=== PATIENT | female | born 1985 | race Caucasian/White ===

== ENCOUNTER 2020-01-16 10:59 | Inpatient (IN) | payer SELFPAY ==
[2020-01-16 11:10] VITALS: BMI 33.2
--- NOTE | 2020-01-16 11:57 | PDOC ---
History of Present Illness - General Chief Complaint: Back Pain Stated Complaint: BACK PAIN/ POSIBLE PREG Time Seen by Provider: 01/16/20 11:25 - History of Present Illness Initial Comments: 01/16/20 11:51 34 at unknown gestational age, LMP 12-22-19, with no sig pmh who p/w BL lower back and flank pain, vaginal bleeding, intermittent dysuria. Patient reports + home test x 3 days ago. Also endorses 3 days of sharp, and pressure-type, bilateral, lower back, and flank pain, with no radiation. Pain worse with standing and prolonged standing. Also endorses bright red blood spotting in underwear 01-13-19, now resolved. Denies PO medication use. Denies repetitive heavy lifting, back straining, back trauma. Patient denies LI, vision change, palpitations, cough, wheezing, orthopena, PND , leg swelling/pain, N/V, F,C, CP, SOB, hematuria, BPR, abdominal pain, diarrhea , vaginal burning/itching/discharge, constipation, lightheadedness, weakness, sensory changes. PMHx: as noted above Surgical: Denies surgical ROS: as noted SHx: Denies Etoh, IVDA, tobacco use. Sexually active with one male partner at bedside. Denies h/o STI's. No routine care. Allergies: NKDA Past History - Past Medical History Allergies/Adverse Reactions: Allergies Allergy/AdvReac Type Severity Reaction Status Date / Time No Known Allergies Allergy Verified 01/16/20 11:08 COPD: No - Reproductive History Is Patient Now?: Yes (#): 1 Para: 0 Therapeutic (s) & number: No - Psycho Social/Smoking Cessation Hx Smoking History: Never smoked Information on smoking cessation initiated: No Review of Systems - Review of Systems Comments:: 01/16/20 11:58 GENERAL/CONSTITUTIONAL: No fever or chills. No weakness. HEAD, EYES, EARS, NOSE AND THROAT: No change in vision. No ear pain or discharge. No sore throat. CARDIOVASCULAR: No chest pain or shortness of breath RESPIRATORY: No cough, wheezing, or hemoptysis. GASTROINTESTINAL: No nausea, vomiting, diarrhea or constipation. GENITOURINARY: + vaginal bleeding, and dysuria. No frequency, or change in urination. MUSCULOSKELETAL:+ Lower back pain. No joint or muscle swelling or pain. No neck pain. SKIN: No rash NEUROLOGIC: No headache, vertigo, loss of consciousness, or change in strength/ sensation. ENDOCRINE: No increased thirst. No abnormal weight change HEMATOLOGIC/LYMPHATIC: No anemia, easy bleeding, or history of blood clots. ALLERGIC/IMMUNOLOGIC: No hives or skin allergy. *Physical Exam - Vital Signs Last Vital Signs Temp Pulse Resp BP Pulse Ox 100.4 F H 110 H 18 117/79 99 01/16/20 11:04 01/16/20 11:04 01/16/20 11:04 01/16/20 11:04 01/16/20 11:04 - Physical Exam 01/16/20 11:59 GENERAL: Awake, alert, and fully oriented, in no acute distress HEAD: No signs of trauma, normocephalic, atraumatic EYES: PERRLA, EOMI, sclera anicteric, conjunctiva clear ENT: Hearing grossly normal, nares patent, oropharynx clear without exudates. Moist mucosa NECK: Normal ROM, supple, no lymphadenopathy, JVD, or masses LUNGS: No distress, speaks full sentences, clear to auscultation bilaterally HEART: Regular rate and rhythm, normal S1 and S2, no murmurs, rubs or gallops, peripheral pulses normal and equal bilaterally. ABDOMEN: Soft, nontender, normoactive bowel sounds. No guarding, no rebound. No masses EXTREMITIES : Normal inspection, Normal range of motion, no edema. No clubbing or cyanosis NEUROLOGICAL: Cranial nerves II through XII grossly intact. Normal speech, normal gait, no focal sensorimotor deficits. 2+ Palpable and symmetric pulses throughout. GENITOURINARY: Nml appearing external genitalia, with absent lesions. Vaginal vault without blood, or discharge. Cervical os closed. Neg CMT on BM. Neg adenexal ttp, or mass palpated. Chaperoned by Dr. Hien Ferrera. BACK: + R>L CVA ttp. + BL paraspinal lumbar sacral and flank pain. Negative midline ttp, step-off or bony deformity. Neg skin change. Neg straight leg raise test. SKIN: Warm, Dry, normal turgor, no rashes or lesions noted ED Treatment Course - LABORATORY CBC & Chemistry Diagram: 01/17/20 06:25 01/17/20 06:25 - RADIOLOGY Radiology Studies Ordered: 01/16/20 14:17 Krystian Sofia Name: RIOS SMITH DEPARTMENT OF RADIOLOGY Phys: Hien Ferrera DO : 1985 Age: 34 Sex: F [facility] Acct: [id number] Loc: [address] Exam Date: 01/16/20 Status: [place] [address] Unit Number: [id number] EXAM#: TYPE/EXAM: RESULT: US/TRANSVAGINAL US PREG History Possible early TECHNIQUE: Transvaginal FINDINGS: The uterus measures 7.9 x 4.1 x 6.4 cm. The endometrium measures 1.3 cm in AP dimension. No sonographic evidence of intrauterine gestational sac The right ovary measures 4.1 x 2.8 x 3.6 cm.. Including a 3.1 cm simple right ovarian cyst The left ovary measures 3.8 x 2.6 x 2.6 cm... Including a 2.5 cm simple left ovarian cyst Doppler evaluation unremarkable There are no adnexal masses. There is no free fluid in the pelvis. IMPRESSION No sonographic evidence of intrauterine gestational sac. Recommend clinical correlation. Recommend correlation with serial beta hCGs and recommend follow-up pelvic sonography for further evaluation Bilateral simple ovarian cysts identified Krystian Sofia Name: RIOS SMITH DEPARTMENT OF RADIOLOGY Phys: Israel Barrett RESIDENT : 1985 Age: 34 Sex: F [facility] Acct: [id number] Loc: [address] Exam Date: 01/16/20 Status: [place] [address] Unit Number: [id number] EXAM#: TYPE/EXAM: RESULT: US/KIDNEY / RENAL US Renal sonogram HISTORY : Bilateral flank pain FINDINGS: Right kidney measures 11.3 cm Left kidney measures 11.4 cm No hydronephrosis, renal masses or renal calculi IMPRESSION: Negative study Reported By: Darian Deluna MD 01/16/20 1411 Israel Barrett Technologist: Amisha Hernandez Transcribed Date/Time: 01/16/20 1411 Feller Buncher Operator: Darian Deluna Printed Date/Time: By: Medical Decision Making - Medical Decision Making 01/16/20 11:55 34 at 4-5 wga, LMP 12-22-19, with no sig pmh who p/w sharp, pressure-type , bilateral, lower back, and flank pain, and flank pain with no radiation x 3 days, intermittent dysuria, and vaginal spotting x 1 day 01-13-20 (now resolved) . Pain worse with standing and prolonged standing. HR 110, Temp oral 100.4. Vitals otherwise wnl, AF, A&Ox4. Physical exam notable for + BL paraspinal lumbar sacral and flank pain. R>L CVA ttp. Will assess for viable IUP, vs. ectopic, threatened . Will consider cystitis, pyeloneprhitis. Will provide analgesic, and anti-emetic control, and reassess. ED Course: EKG: NSR with absent ALINE, STD. Nml interval duration and axis. Nml R wave progression. Absent Q waves. NS 1 L, Tylenol 1 GM 01/16/20 12:37 Laboratory Tests 01/16/20 01/16/20 11:40 11:40 WBC 7.6 Hgb 12.0 Hct 35.6 Plt Count 237 Urine Color Yellow Urine Appearance Cloudy Urine Blood 3+ H Urine Nitrite Positive H Ur Leukocyte Esterase 2+ H Urine WBC (Auto) 151 Urine RBC (Auto) 5 Urine Bacteria (Auto) 2781.4 01/16/20 12:37 Rocephin 1 gm Pyelonephritis- BL flank pain, 2/4 SIRS criteria ( temp 100.4, HR 110 ), early /high risk. Plan to admit pyelo 01/16/20 12:55 Laboratory Tests 01/16/20 11:40 Sodium 135 L Potassium 3.8 BUN 10.8 Creatinine 0.5 L Beta HCG, Quant 40.9 01/16/20 14:19 No sonographic evidence of intrauterine gestational sac. Recommend clinical correlation. Recommend correlation with serial beta hCGs and recommend follow- up pelvic sonography for further evaluation Bilateral simple ovarian cysts identified 01/16/20 14:19 RENAL IMPRESSION: Negative study Patient notified of decision to admit for pyelo. 01/16/20 14:53 Pt. endorsed to medicine. Admitted to Dr. Rosa. Discharge - Discharge Information Problems reviewed: Yes Clinical Impression/Diagnosis: Pyelonephritis affecting Qualifiers: Trimester: first trimester Qualified Code(s): O23.01 - Infections of kidney in , first trimester Condition: Stable - Admission Yes - Follow up/Referral - Patient Discharge Instructions - Post Discharge Activity
[2020-01-16] MEDS ORDERED: SODIUM CHLORIDE 2,313 ML IV ONE (12:04)
[2020-01-16 12:22] LABS: BASO % 0.5 % (0-2.0); EOS % 0.2 % (0-4.5); HEMATOCRIT 35.6 % (32.4-45.2); LYMPH % 12.1 % (8-40); MCH 29.1 pg (25.7-33.7); MCHC 33.6 g/dl (32.0-36.0); MEAN CELL VOLUME 86.4 fl (80-96); MEAN PLT VOLUME 8.9 fl (7.5-11.1); MONO % 11.7 % (3.8-10.2); NEUT % 75.5 % (42.8-82.8); PLATELET COUNT 237 K/MM3 (134-434); RBC 4.12 M/mm3 (3.60-5.2); RDW 14.6 % (11.6-15.6); WHITE BLOOD COUNT 7.6 K/mm3 (4.0-10.0)
[2020-01-16] MEDS ORDERED: ACETAMINOPHEN 1000 MG/100 ML VIAL (NON FORMULARY) IVPB ONE (12:27)
--- NOTE | 2020-01-16 12:29 | PDOC ---
Documentation entered by Obie Fine SCRIBE, acting as scribe for Hien Ferrera DO. Hien Ferrera DO: This documentation has been prepared by the Babatunde dawn Daniel, SCRIBE, under my direction and personally reviewed by me in its entirety. I confirm that the documentation accurately reflects all work, treatment, procedures, and medical decision making performed by me. Attending Attestation - Resident Resident Name: ArnodlIsrael - ED Attending Attestation I have performed the following: I have examined & evaluated the patient, The case was reviewed & discussed with the resident, I agree w/resident's findings & plan, Exceptions are as noted - HPI HPI: 01/16/20 12:05 The patient is a 34 year old with no past medical history here today for evaluation of bilateral lower back and flank pain. The patient reports that she had a positive home test and that her LMP was 12/22/2019. She states that 3 days ago she developed bilateral lower back and flank pain that is worse with prolonged standing and sitting. She also notes dysuria and one episode of vaginal spotting 3 days ago. Patient denies headache, lightheadedness. Denies fever, chills. Denies chest pain, shortness of breath. Denies nausea, vomiting, diarrhea. Allergies: NKA - Physicial Exam PE: 01/16/20 12:17 Constitutional: +warm to touch. Awake, alert, oriented. No acute distress. Head: Normocephalic. Atraumatic Eyes: PERRL. EOMI. Conjunctivae are not pale. ENT: Mucous membranes are moist and intact. Posterior pharynx without exudates or erythema. Uvula midline. Neck: Supple. Full ROM. No lymphadenopathy. Cardiovascular: +tachycardia. Regular rhythm. S1, S2 regular. Distal pulses are 2+ and symmetric. Pulmonary/Chest: No evidence of respiratory distress. Clear to auscultation bilaterally No wheezing, rales or rhonchi. Abdominal: Soft and non-distended. There is no tenderness. No rebound, guarding or rigidity. No organomegaly. No palpable masses. Good bowel sounds. Back: +right greater than left CVA tenderness. Musculoskeletal: No edema. No cyanosis. No clubbing. Full range of motion in all extremities. No calf tenderness. Radial/pedal pulses are intact and 2+ bilaterally Skin: Skin is warm and dry. No petechiae. No purpura. Neurological: Alert and oriented to person, place, and time. Cranial nerves II -XII are grossly intact. Normal speech. Strength is grossly symmetric. No sensory deficits. Psychiatric: Good eye contact. Normal interaction, affect and behavior. - Medical Decision Making 01/16/20 12:27 I, Dr. Hien Ferrera, DO, attest that this document has been prepared under my direction and personally reviewed by me in its entirety. I further attest, that it accurately reflects all work, treatment, procedures and medical decision -making performed by me. a/p: 34yo female at about 4-5 weeks gestation with fever today and back pain -states urinary freq, no dysuria -states vaginal spotting 3 days ago -no bleeding today -pt denies n/v/d -no abd pain -pt wit R>L cva ttp -will send labs, tvus, beta, renal ultrasound, suspect uti vs pyelo -tylenol, ivf hydration -no cough, congestion, cp/sob -will monitor and reassess 01/16/20 12:59 no elevated wbc ua + uti pending ultrasound 01/16/20 12:59 beta hcg 40.9 01/16/20 13:32 pt to ultrasound 01/16/20 13:32 pt is o+ 01/16/20 14:16 no hydro, no iup but beta 40 will need repeat beta pt with clinical pyelo and preg iv abx ordered will [facility] for admission for iv abx 01/16/20 14:49 resident discussed the case with [facility] who accepts pt to service Heart Score/ECG Review - ECG Intrepretation Comment:: 01/16/20 14:41 sinus at 89, nl axis, nl interval, no acute st/t wave findings
[2020-01-16 12:30] LABS: EPI CELLS 4.2 /HPF (0-5/HPF); HYALINE CASTS 15 /lpf (0-8); PH,URINE 6.5 (5.0-8.0); URINE APPEARANCE CLOUDY; URINE BACTERIA 2781.4 /hpf (NEGATIVE); URINE BILIRUBIN NEGATIVE (NEGATIVE); URINE COLOR YELLOW; URINE GLUCOSE (UA) NEGATIVE (NEGATIVE); URINE KETONE NEGATIVE (NEGATIVE); URINE LEUK ESTERASE 2+ (NEGATIVE); URINE NITRITE POSITIVE (NEGATIVE); URINE PROTEIN 1+ (NEGATIVE); URINE RBC 5 /hpf (0-4); URINE WBC 151 /hpf (0-5)
[2020-01-16] MEDS ORDERED: CEFTRIAXONE 1 GM in DEXTROSE 5%-WATER - 100 ML IVPB ONE (12:36)
[2020-01-16] MEDS ORDERED: ACETAMINOPHEN INJECTION 100 ML IVPB ONE (12:37)
[2020-01-16 12:55] LABS: ALBUMIN 3.3 g/dl (3.4-5.0); BILIRUBIN,TOTAL 0.6 mg/dL (0.2-1); BLOOD UREA NITROGEN 10.8 mg/dL (7-18); CALCIUM 8.2 mg/dL (8.5-10.1); CREATININE 0.5 mg/dL (0.55-1.3); POTASSIUM 3.8 mmol/L (3.5-5.1); TOT PROT 7.2 g/dl (6.4-8.2)
[2020-01-16] MEDS ORDERED: CEFTRIAXONE 1 GM/50 ML BAG ONE (14:07)
[2020-01-16] MEDS ORDERED: CEFTRIAXONE 1 GM in DEXTROSE 5%-WATER - 50 ML IVPB ONE (16:19)
--- NOTE | 2020-01-16 16:30 | HP ---
CHIEF COMPLAINT: lower back pain PCP: does not have pcp or obgyn HISTORY OF PRESENT ILLNESS: 34 yo F no significant PMH, no prior pregnancies , LMP 12/24/2019 presents to ED for lower back. the pain began last week and acutely worsened yesterday. 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 Pt states that she just did a test 3 days ago and it was positive. Pt states she had some faint red spotting that started today but is now improved. She also endorses nausea which has also resolved. Pt denies dysuria, denies suprapubic pain. ER course was notable for: (1)1 g IV Ceftriaxone (2)Renal U/s negative (3)B HCG 40.9 Recent Travel:denies PAST MEDICAL HISTORY: denies PAST SURGICAL HISTORY: denies Social History: Smoking:denies Alcohol:denies Drugs: denies Allergies No Known Allergies Allergy (Verified 01/16/20 11:08) HOME MEDICATIONS: REVIEW OF SYSTEMS CONSTITUTIONAL: Absent: fever, chills, diaphoresis, generalized weakness, malaise, loss of appetite, weight change HEENT: Absent: rhinorrhea, nasal congestion, throat pain, throat swelling, difficulty swallowing, mouth swelling, ear pain, eye pain, visual changes CARDIOVASCULAR: Absent: chest pain, syncope, palpitations, irregular heart rate, lightheadedness , peripheral edema RESPIRATORY: Absent: cough, shortness of breath, dyspnea with exertion, orthopnea, wheezing, stridor, hemoptysis GASTROINTESTINAL: Positive: nausea Absent: abdominal pain, abdominal distension, vomiting, diarrhea, constipation, melena, hematochezia GENITOURINARY: Absent: dysuria, frequency, urgency, hesitancy, hematuria, flank pain, genital pain MUSCULOSKELETAL: Present: back pain Absent: myalgia, arthralgia, joint swelling, neck pain SKIN: Absent: rash, itching, pallor HEMATOLOGIC/IMMUNOLOGIC: Absent: easy bleeding, easy bruising, lymphadenopathy, frequent infections ENDOCRINE: Absent: unexplained weight gain, unexplained weight loss, heat intolerance, cold intolerance NEUROLOGIC: Absent: headache, focal weakness or paresthesias, dizziness, unsteady gait, seizure, mental status changes, bladder or bowel incontinence PHYSICAL EXAMINATION Vital Signs - 24 hr 01/16/20 11:04 Temperature 100.4 F H Pulse Rate 110 H Respiratory 18 Rate Blood Pressure 117/79 O2 Sat by Pulse 99 Oximetry (%) GENERAL: Awake, alert, and fully oriented, in no acute distress. HEAD: Normal with no signs of trauma. LUNGS: Breath sounds equal, clear to auscultation bilaterally. No wheezes, and no crackles. No accessory muscle use. HEART: Regular rate and rhythm, normal S1 and S2 without murmur, rub or gallop. ABDOMEN: Soft, nontender, not distended, normoactive bowel sounds, no guarding, no rebound, no masses. No hepatomegaly or splenomegaly. MUSCULOSKELETAL: Normal range of motion at all joints. No bony deformities or tenderness. No CVA tenderness. UPPER EXTREMITIES: 2+ pulses, warm, well-perfused. No cyanosis. No clubbing. No peripheral edema. LOWER EXTREMITIES: 2+ pulses, warm, well-perfused. No calf tenderness. No peripheral edema. SKIN: Warm, dry, normal turgor, no rashes or lesions noted, normal capillary refill. PLEASE REFER TO ED NOTE, DR. MAGDALENO regarding pelvic exam Laboratory Last Values WBC 7.6 K/mm3 (4.0-10.0) 01/16/20 11:40 RBC 4.12 M/mm3 (3.60-5.2) 01/16/20 11:40 Hgb 12.0 GM/dL (10.7-15.3) 01/16/20 11:40 Hct 35.6 % (32.4-45.2) 01/16/20 11:40 MCV 86.4 fl (80-96) 01/16/20 11:40 MCH 29.1 pg (25.7-33.7) 01/16/20 11:40 MCHC 33.6 g/dl (32.0-36.0) 01/16/20 11:40 RDW 14.6 % (11.6-15.6) 01/16/20 11:40 Plt Count 237 K/MM3 (134-434) 01/16/20 11:40 MPV 8.9 fl (7.5-11.1) 01/16/20 11:40 Absolute Neuts (auto) 5.7 K/mm3 (1.5-8.0) 01/16/20 11:40 Neutrophils % 75.5 % (42.8-82.8) 01/16/20 11:40 Lymphocytes % 12.1 % (8-40) 01/16/20 11:40 Monocytes % 11.7 % (3.8-10.2) H 01/16/20 11:40 Eosinophils % 0.2 % (0-4.5) 01/16/20 11:40 Basophils % 0.5 % (0-2.0) 01/16/20 11:40 Nucleated RBC % 0 % (0-0) 01/16/20 11:40 Sodium 135 mmol/L (136-145) L 01/16/20 11:40 Potassium 3.8 mmol/L (3.5-5.1) 01/16/20 11:40 Chloride 100 mmol/L (98-107) 01/16/20 11:40 Carbon Dioxide 28 mmol/L (21-32) 01/16/20 11:40 Anion Gap 7 MMOL/L (8-16) L 01/16/20 11:40 BUN 10.8 mg/dL (7-18) 01/16/20 11:40 Creatinine 0.5 mg/dL (0.55-1.3) L 01/16/20 11:40 Est GFR (CKD-EPI)AfAm 145.33 01/16/20 11:40 Est GFR (CKD-EPI)NonAf 125.39 01/16/20 11:40 Random Glucose 94 mg/dL (74-106) 01/16/20 11:40 Lactic Acid 0.7 mmol/L (0.4-2.0) 01/16/20 12:13 Calcium 8.2 mg/dL (8.5-10.1) L 01/16/20 11:40 Total Bilirubin 0.6 mg/dL (0.2-1) 01/16/20 11:40 AST 20 U/L (15-37) 01/16/20 11:40 ALT 22 U/L (13-61) 01/16/20 11:40 Alkaline Phosphatase 102 U/L (45-117) 01/16/20 11:40 Total Protein 7.2 g/dl (6.4-8.2) 01/16/20 11:40 Albumin 3.3 g/dl (3.4-5.0) L 01/16/20 11:40 Beta HCG, Quant 40.9 mIU/ml 01/16/20 11:40 Urine Color Yellow 01/16/20 11:40 Urine Appearance Cloudy 01/16/20 11:40 Urine pH 6.5 (5.0-8.0) 01/16/20 11:40 Ur Specific [place] 1.013 (1.010-1.035) 01/16/20 11:40 Urine Protein 1+ (NEGATIVE) H 01/16/20 11:40 Urine Glucose (UA) Negative (NEGATIVE) 01/16/20 11:40 Urine Ketones Negative (NEGATIVE) 01/16/20 11:40 Urine Blood 3+ (NEGATIVE) H 01/16/20 11:40 Urine Nitrite Positive (NEGATIVE) H 01/16/20 11:40 Urine Bilirubin Negative (NEGATIVE) 01/16/20 11:40 Urine Urobilinogen 1.0 mg/dL (0.2-1.0) 01/16/20 11:40 Ur Leukocyte Esterase 2+ (NEGATIVE) H 01/16/20 11:40 Urine WBC (Auto) 151 /hpf (0-5) 01/16/20 11:40 Urine RBC (Auto) 5 /hpf (0-4) 01/16/20 11:40 Urine Casts (Auto) 15 /lpf (0-8) 01/16/20 11:40 U Epithel Cells (Auto) 4.2 /HPF (0-5/HPF) 01/16/20 11:40 Urine Bacteria (Auto) 2781.4 /hpf (NEGATIVE) 01/16/20 11:40 Blood Type O POSITIVE 01/16/20 11:40 Antibody Screen Negative 01/16/20 11:40 ASSESSMENT/PLAN: 34 yo F no significant PMH, no prior pregnancies , LMP 12/24/2019 presents to ED for lower back. the pain began last week and acutely worsened yesterday.Pt is admitted for complicated UTI Complicated UTI - c/w IV rocephin -(+) UA -pending U Cx - c/w IVF @ 100mls/hr elevated BHCG,early - rpt BHCG tomorrow - OBGYN consult, Dr. Torres - vitamins -pt states she wants to keep - pt ammenable to HIV, STD testing -recommending close f/u outpt F/E/N - IV NS @ 100mls/hr -monitor lytes -regular diet DVT ppx: SCDs, early ambulation Dispo: admit to med/surg Visit type - Emergency Visit Emergency Visit: Yes ED Registration Date: 01/16/20 Care time: The patient presented to the Emergency Department on the above date and was hospitalized for further evaluation of their emergent condition. - New Patient This patient is new to me today: Yes Date on this admission: 01/16/20 - Critical Care Critical Care patient: No ATTENDING PHYSICIAN STATEMENT I saw and evaluated the patient. I reviewed the resident's note and discussed the case with the resident. I agree with the resident's findings and plan as documented. SUBJECTIVE: OBJECTIVE: ASSESSMENT AND PLAN:
[2020-01-16] MEDS ORDERED: cefTRIAXone SODIUM 1 GM VIAL ONE (16:56)
[2020-01-16] MEDS ORDERED: DEXTROSE 5%-WATER - 50 ML IVPB ONE (16:56)
[2020-01-16] MEDS: SODIUM CHLORIDE 1,000 ML IV SCH (17:24)
[2020-01-16] MEDS: PRENATAL VITAMINS W/ FOLIC ACID TABLET (FP) PO SCH (18:22)
--- NOTE | 2020-01-16 20:02 | PN ---
Teaching Attending Note Name of Resident: Stacey Martin ATTENDING PHYSICIAN STATEMENT I saw and evaluated the patient. I reviewed the resident's note and discussed the case with the resident. I agree with the resident's findings and plan as documented. SUBJECTIVE: Patient seen and examined at beside, feels OK, denies complaints. VSS. Objective: PE GA comfortable, AAox3, speaks in full sentences HEENT NC/AT, EOMI, neck supple, MMM Chest CTAB, no crackles or wheezing CVS s1, S2+, RRR, no m/r/g Abd Soft, obese, NT, BS+, no guarding Ext no LE edema, no calf tenderness, moves all 4 ext. No appreciable CVA tenderness, no suprapubic tenderness Vital Signs - 24 hr 01/16/20 01/16/20 01/16/20 11:04 16:00 17:20 Temperature 100.4 F H 96.7 F L 98.1 F Pulse Rate 110 H 84 Pulse Rate [ 85 Right Radial] Respiratory 18 18 18 Rate Blood Pressure 117/79 106/61 Blood Pressure 96/60 [Right Arm] O2 Sat by Pulse 99 100 97 Oximetry (%) Laboratory Results - last 24 hr 01/16/20 01/16/20 01/16/20 11:40 11:40 11:40 WBC 7.6 RBC 4.12 Hgb 12.0 Hct 35.6 MCV 86.4 MCH 29.1 MCHC 33.6 RDW 14.6 Plt Count 237 MPV 8.9 Absolute Neuts (auto) 5.7 Neutrophils % 75.5 Lymphocytes % 12.1 Monocytes % 11.7 H Eosinophils % 0.2 Basophils % 0.5 Nucleated RBC % 0 Sodium 135 L Potassium 3.8 Chloride 100 Carbon Dioxide 28 Anion Gap 7 L BUN 10.8 Creatinine 0.5 L Est GFR (CKD-EPI)AfAm 145.33 Est GFR (CKD-EPI)NonAf 125.39 Random Glucose 94 Lactic Acid Calcium 8.2 L Total Bilirubin 0.6 AST 20 ALT 22 Alkaline Phosphatase 102 Total Protein 7.2 Albumin 3.3 L Beta HCG, Quant 40.9 Urine Color Urine Appearance Urine pH Ur Specific [place] Urine Protein Urine Glucose (UA) Urine Ketones Urine Blood Urine Nitrite Urine Bilirubin Urine Urobilinogen Ur Leukocyte Esterase Urine WBC (Auto) Urine RBC (Auto) Urine Casts (Auto) U Epithel Cells (Auto) Urine Bacteria (Auto) Blood Type O POSITIVE Antibody Screen Negative 01/16/20 01/16/20 11:40 12:13 WBC RBC Hgb Hct MCV MCH MCHC RDW Plt Count MPV Absolute Neuts (auto) Neutrophils % Lymphocytes % Monocytes % Eosinophils % Basophils % Nucleated RBC % Sodium Potassium Chloride Carbon Dioxide Anion Gap BUN Creatinine Est GFR (CKD-EPI)AfAm Est GFR (CKD-EPI)NonAf Random Glucose Lactic Acid 0.7 Calcium Total Bilirubin AST ALT Alkaline Phosphatase Total Protein Albumin Beta HCG, Quant Urine Color Yellow Urine Appearance Cloudy Urine pH 6.5 Ur Specific [place] 1.013 Urine Protein 1+ H Urine Glucose (UA) Negative Urine Ketones Negative Urine Blood 3+ H Urine Nitrite Positive H Urine Bilirubin Negative Urine Urobilinogen 1.0 Ur Leukocyte Esterase 2+ H Urine WBC (Auto) 151 Urine RBC (Auto) 5 Urine Casts (Auto) 15 U Epithel Cells (Auto) 4.2 Urine Bacteria (Auto) 2781.4 Blood Type Antibody Screen Current Medications Generic Name Dose Route Start Last Admin Trade Name Ruel PRN Reason Stop Dose Admin Sodium Chloride 1,000 mls @ 100 mls/hr 01/16/20 16:30 01/16/20 17:24 Normal Saline - IV 100 mls/hr ASDIR BILL Administration Multivit/Folic Acid/Iron 1 tab 01/16/20 16:00 01/16/20 18:22 Vitamins (Sjr) - PO 1 tab DAILY BILL Administration A/p: 34 F no PMHx, (as per pt.) LMP 12/24/2019 presents to ED LBP x 1 week with subjective chills. Patient found to have positive test and UTI. Complicated UTI IV Ceftriaxone, send for urine cx, blood cx x2 IVF, renal imaging reviewed no s/o renal stones/abscess Cont. to follow, after treatment patient will need repeat urine studies to document eradication Positive HCG no gestational sac on trans-vaginal US, HCG around 50 indicating 1-2 week gestation, (sac not usually seen until HCG atleast around 2000) will need daily HCG to document doubling/tripling, no signs of ectopic (no abdominal pain, BP stable) Start Prenatals PO, counseled patient on positive marker she notes this is a wanted , denies domestic violence, endorses this is first time shes . Counseled on avoiding teratogenic agents and to take prenatals daily. STD testing with Hepatitis panel, HIV, syphilis, GC chlamydia (patient consented ) OBGYN consult: Dr Torres Med surg OBGYN consult
[2020-01-16] MEDS ORDERED: ACETAMINOPHEN 500 MG TABLET (FP) PO ONE (22:37)
[2020-01-17] MEDS: SODIUM CHLORIDE 1,000 ML IV SCH ×2 (04:16→17:40)
[2020-01-17 07:01] LABS: BASO % 0.5 % (0-2.0); EOS % 0.4 % (0-4.5); HEMATOCRIT 32.6 % (32.4-45.2); LYMPH % 16.9 % (8-40); MCH 29.2 pg (25.7-33.7); MCHC 33.6 g/dl (32.0-36.0); MEAN CELL VOLUME 86.9 fl (80-96); MEAN PLT VOLUME 8.7 fl (7.5-11.1); MONO % 17.5 % (3.8-10.2); NEUT % 64.7 % (42.8-82.8); PLATELET COUNT 201 K/MM3 (134-434); RBC 3.76 M/mm3 (3.60-5.2); RDW 14.4 % (11.6-15.6); WHITE BLOOD COUNT 8.2 K/mm3 (4.0-10.0)
[2020-01-17 07:37] LABS: ALBUMIN 2.7 g/dl (3.4-5.0); BILIRUBIN,TOTAL 0.6 mg/dL (0.2-1); BLOOD UREA NITROGEN 5.6 mg/dL (7-18); CALCIUM 7.6 mg/dL (8.5-10.1); CREATININE 0.4 mg/dL (0.55-1.3); MAGNESIUM 2.1 mg/dL (1.8-2.4); PHOSPHOROUS 3.6 mg/dL (2.5-4.9); POTASSIUM 3.4 mmol/L (3.5-5.1); TOT PROT 6.6 g/dl (6.4-8.2)
--- NOTE | 2020-01-17 09:26 | EKG ---
Test Reason : Blood Pressure : / mmHG Vent. Rate : 089 BPM Atrial Rate : 089 BPM P-R Int : 146 ms QRS Dur : 080 ms QT Int : 370 ms P-R-T Axes : 073 055 042 degrees QTc Int : 450 ms NORMAL SINUS RHYTHM NORMAL ECG NO PREVIOUS ECGS AVAILABLE Confirmed by Robby Reddy ([id number]) on 01/17/2020 9:25:51 AM Referred By: Confirmed By:Robby Reddy
[2020-01-17] MEDS ORDERED: cefTRIAXone SODIUM 1 GM VIAL ONE ×2 (09:39→13:21)
[2020-01-17] MEDS ORDERED: DEXTROSE 5%-WATER - 50 ML IVPB ONE ×2 (09:39→13:21)
[2020-01-17] MEDS ORDERED: CEFTRIAXONE 1 GM in DEXTROSE 5%-WATER - 50 ML IVPB SCH (10:00)
--- NOTE | 2020-01-17 10:01 | CONSULT ---
Consult Consult Specialty:: OBGYN Reason for Consultation:: Positive test - History of Present Illness Chief Complaint: Low Back Pain, spotting History of Present Illness: 34yo @ 3.3wks by certain LMP (12/22/2019) here with low back pain, spotting x 3 days ago, and again light spotting this morning No cramping. Unplanned but desired. 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: No: Alzheimer's, CVA, Dementia, Migraine, Multiple Sclerosis, Peripheral Neuropathy, Parkinson's, Seizure, Syncope, TIA, Vertigo, Other Cardio/Vascular: No: AFIB, Aneurysm, Aortic Insufficiency, Aortic Stenosis, CAD , CHF, Deep Vein Thrombosis, HTN, Hyperlipdemia, OR, Mitral Insufficiency, Mitral Stenosis, Murmur, Pulmonary Hypertension, Other Pulmonary: No: Asthma, Bronchitis, Cancer, COPD, O2 Dependent, Pneumonia, Previously Intubated, Pulmonary Embolus, Pulmonary Fibrosis, Sleep Apnea, Other Gastrointestinal: No: Ascites, Cancer, Constipation, Crohn's Disease, Diverticulitis, Diverticulosis, Esophageal Varices, Gastritis, GERD, GI Bleed, Hemorrhoids, Hiatal Hernia, Inflamatory Bowel Disease, Irritable Bowel Disease, Pancreatitis, Peptic Ulcer Disease, Ulcerative Colitis, Other Hepatobiliary: No: Cirrhosis, Cholelithiasis, Cholecystitis, Choledocholithiasis , Hepatitis A, Hepatitis B, Hepatitis C, Other Renal/: No: Renal Failure, Renal Inusuff, BPH, Cancer, Hematuria, Hemodialysis , Neurogenic Bladder, Renal Calculi, UTI, Other ...LMP: 12/22/19 ...LMP Comment: certain ...: Yes ...: 1 Heme/Onc: No: Anemia, B12 Deficiency, Bleeding Disorder, Cancer, Current Chemotherapy, Current Radiation Therapy, Hemochromatosis, Hypercoaguable State, Myeloproliferative Synd, Sickle Cell Disease, Sickle Cell Trait, Thrombocytopenia, Other Infectious Disease: No: AIDS, C-Diff, Herpes Zoster, HIV, MRSA, STD's, Tuberculosis, VREF, Other Psych: No: Addictions, Anxiety, Bipolar, Depression, Panic, Psychosis, Schizophrenia, Other Musculoskeletal: No: Bursitis, Chronic low back pain, Hemiparesis, Hemiplegia, Osteoarthritis, Paraplegia, Other Rheumatology: No: Fibromyalgia, Gout, Lupus, Rheumatoid Arthritis, Sarcoidosis, Vasculitis, Other ENT: No: Allergic Rhinitis, Sinusitis, Other Endocrine: No: Kingfisher's Disease, Guera's Disease, Diabetes Insipidus, Diabetes Mellitus, Hyperparathyroidism, Hyperthyroidism, Hypothyroidism, Osteopenia, SIADH, Other Dermatology: No: Basal Cell, Cellulitis, Eczema, Melanoma, Psoriasis, Squamous Cell, Other - Past Surgical History Past Surgical History: Yes: None - Alcohol/Substance Use Hx Alcohol Use: No History of Substance Use: reports: None - Smoking History Smoking history: Never smoked Have you smoked in the past 12 months: No - Social History Usual Living Arrangement: With Significant Other ADL: Independent History of Recent Travel: No Home Medications - Allergies Allergies/Adverse Reactions: Allergies Allergy/AdvReac Type Severity Reaction Status Date / Time No Known Allergies Allergy Verified 01/16/20 11:08 Review of Systems - Review of Systems Constitutional: denies: No Symptoms, Chills, Diaphoresis, Fever, Lethargy, Loss of Appetite, Malaise, Night Sweats, Unintentional Wgt. Loss, Weakness, Other Cardiovascular: denies: No Symptoms, Chest Pain, Edema, Palpitations, Shortness of Breath, Other Respiratory: denies: No Symptoms, Cough, Exercise Intolerance, Hemoptysis, Orthopnea, PND, Snoring, SOB, SOB on Exertion, Wheezing, Other Physical Exam Vital Signs: Vital Signs Temperature 97.2 F L 01/17/20 06:00 Pulse Rate 83 01/17/20 06:00 Respiratory Rate 20 01/17/20 06:00 Blood Pressure 96/54 L 01/17/20 06:00 O2 Sat by Pulse Oximetry (%) 97 01/16/20 21:00 Constitutional: Yes: Well Nourished, No Distress, Calm Labs: CBC, BMP 01/17/20 06:25 01/17/20 06:25 Imaging - Results Ultrasound: Report Reviewed Assessment/Plan 34yo @ 3.3wks here with complicated UTI, vaginal spotting- threatened Chart reviewed including labs and sonogram report Very low HCG 40.9wks- could represent possible threatened AB in light of spotting vs early . Needs repeat value to trend Sonogram normal given low HCG, would not expect to see IUP until HCG is above 1500 Continue care for UTI as per primary team Should patient be dishcarged prior to repeat HCG results being available from today, fine to follow up in the clinic for follow up. All questions answered Carlos Gaona MD
[2020-01-17] MEDS ORDERED: ACETAMINOPHEN 325 MG TABLET (FP) PO PRN (11:35)
[2020-01-17] MEDS ORDERED: CEFTRIAXONE 1 GM in DEXTROSE 5%-WATER - 50 ML IVPB ONE (12:00)
--- NOTE | 2020-01-17 13:58 | PN ---
Progress Note (short form) - Note Progress Note: ID consult dictated fever/back pain/UTI early no prior hospitalizations no abdominal pain no nausea or vaomiting low back pain has resolved no signs pyelonephritis-no cvat continue ceftriaxone and IVF f/u cultures no history of prior hospitalizations or prior uti Problem List - Problems (1) UTI (urinary tract infection) Code(s): N39.0 - URINARY TRACT INFECTION, SITE NOT SPECIFIED (2) Code(s): Z34.90 - ENCNTR FOR SUPRVSN OF NORMAL , UNSP, UNSP TRIMESTER
--- NOTE | 2020-01-17 16:32 | PN ---
Physical Exam: SUBJECTIVE: Patient seen and examined at bedside. pt has no acute complaints. pt denies dysuria, abdominal pain. pt states that back pain is resolved OBJECTIVE: Vital Signs Period Temp Pulse Resp BP Sys/Ferreira Pulse Ox Last 24 Hr 97.2 F-102.1 F 69-111 18-20 96-124/54-66 97-100 GENERAL: The patient is awake, alert, and fully oriented, in no acute distress. LUNGS: Breath sounds equal, clear to auscultation bilaterally, no wheezes, no crackles, no accessory muscle use. HEART: Regular rate and rhythm, S1, S2 without murmur, rub or gallop. ABDOMEN: Soft, nontender, nondistended, normoactive bowel sounds, no guarding EXTREMITIES: 2+ pulses, warm, well-perfused, no edema. SKIN: Warm, dry, normal turgor, no rashes or lesions noted Laboratory Results - last 24 hr 01/16/20 01/16/20 01/17/20 18:35 18:35 06:25 WBC 8.2 RBC 3.76 Hgb 11.0 Hct 32.6 MCV 86.9 MCH 29.2 MCHC 33.6 RDW 14.4 Plt Count 201 MPV 8.7 Absolute Neuts (auto) 5.3 Neutrophils % 64.7 Lymphocytes % 16.9 D Monocytes % 17.5 H Eosinophils % 0.4 D Basophils % 0.5 Nucleated RBC % 0 Sodium Potassium Chloride Carbon Dioxide Anion Gap BUN Creatinine Est GFR (CKD-EPI)AfAm Est GFR (CKD-EPI)NonAf Random Glucose Calcium Phosphorus Magnesium Total Bilirubin AST ALT Alkaline Phosphatase Total Protein Albumin Beta HCG, Quant RPR Titer Nonreactive HIV 1&2 Antibody Screen Negative HIV P24 Antigen Negative 01/17/20 06:25 WBC RBC Hgb Hct MCV MCH MCHC RDW Plt Count MPV Absolute Neuts (auto) Neutrophils % Lymphocytes % Monocytes % Eosinophils % Basophils % Nucleated RBC % Sodium 138 Potassium 3.4 L Chloride 107 Carbon Dioxide 25 Anion Gap 6 L BUN 5.6 L Creatinine 0.4 L Est GFR (CKD-EPI)AfAm 156.40 Est GFR (CKD-EPI)NonAf 134.94 Random Glucose 88 Calcium 7.6 L Phosphorus 3.6 Magnesium 2.1 Total Bilirubin 0.6 AST 13 L ALT 17 Alkaline Phosphatase 87 Total Protein 6.6 Albumin 2.7 L Beta HCG, Quant 40.0 RPR Titer HIV 1&2 Antibody Screen HIV P24 Antigen Active Medications Generic Name Dose Route Start Last Admin Trade Name Ruel PRN Reason Stop Dose Admin Acetaminophen 650 mg 01/17/20 11:35 01/17/20 13:51 Tylenol - PO 650 mg Q6H PRN Administration Fever Or Pain Sodium Chloride 1,000 mls @ 100 mls/hr 01/16/20 16:30 01/17/20 04:16 Normal Saline - IV 100 mls/hr ASDIR BILL Administration Ceftriaxone Sodium 1 gm/ 50 mls @ 100 mls/hr 01/18/20 10:00 Dextrose IVPB DAILY BILL Protocol Multivit/Folic Acid/Iron 1 tab 01/16/20 16:00 01/16/20 18:22 Vitamins (Sjr) - PO 1 tab DAILY BILL Administration ASSESSMENT/PLAN: 34 yo F no significant PMH, no prior pregnancies , LMP 12/24/2019 presents to ED for lower back. the pain began last week and acutely worsened yesterday.Pt is admitted for pyelonephritis Complicated UTI , Pyelonephritis - c/w IV rocephin -(+) UA, U Cx lactose fementing neg bacilli - c/w IVF @ 100mls/hr - ID recs appreciated elevated BHCG,treatened - rpt BHCG unchanged. continue to trend . should double every 72 hours. - OBGYN consult, Dr. Torres . likely threate - vitamins -pt states she wants to keep -pending HIV, STD results -recommending close f/u outpt F/E/N - IV NS @ 100mls/hr -monitor lytes -regular diet DVT ppx: SCDs, early ambulation Dispo: continue to monitor on med/surg Visit type - Emergency Visit Emergency Visit: No - New Patient This patient is new to me today: No - Critical Care Critical Care patient: No - Discharge Referral Referred to [facility] No ATTENDING PHYSICIAN STATEMENT I saw and evaluated the patient. I reviewed the resident's note and discussed the case with the resident. I agree with the resident's findings and plan as documented. SUBJECTIVE: OBJECTIVE: ASSESSMENT AND PLAN:
--- NOTE | 2020-01-17 16:41 | PN ---
Teaching Attending Note Name of Resident: Stacey Martin ATTENDING PHYSICIAN STATEMENT I saw and evaluated the patient. I reviewed the resident's note and discussed the case with the resident. I agree with the resident's findings and plan as documented. SUBJECTIVE: Patient is a 34yof with no significant PMhx presented to the ED.for having fever at home , no chills, with back pain. patient is an ecuadorean speaking lady boyfriend at bedside, used a [employer] for translation. Patient stated that she checked herself before coming to the hospital and test was positive, came due to having low back pain, fever at home. While in Ed. was found to have UTI/pylonephritis. Stated that she wants to keep the OBJECTIVE: Vital Signs Temperature 97.9 F 01/17/20 14:36 Pulse Rate 69 01/17/20 14:36 Respiratory Rate 20 01/17/20 14:36 Blood Pressure 124/64 01/17/20 14:36 O2 Sat by Pulse Oximetry (%) 100 01/17/20 09:00 GENERAL: The patient is awake, alert, and fully oriented, in no acute distress. HEAD: Normal with no signs of trauma. EYES: PERRL, extraocular movements intact, sclera anicteric, conjunctiva clear. ENT: Ears normal, oropharynx clear without exudates, moist mucous membranes. NECK: Trachea midline, full range of motion, supple. LUNGS: Breath sounds equal, clear to auscultation bilaterally, no wheezes, no crackles, no accessory muscle use. HEART: Regular rate and rhythm, S1, S2 without murmur, rub or gallop. ABDOMEN: Soft, nontender, nondistended, normoactive bowel sounds, no guarding, no rebound, no hepatosplenomegaly, no masses. EXTREMITIES: 2+ pulses, warm, well-perfused, no edema. NEUROLOGICAL: Cranial nerves II through XII grossly intact. Normal speech, gait not observed. PSYCH: Normal mood, normal affect. SKIN: Warm, dry, normal turgor, no rashes or lesions noted CBCD WBC 8.2 K/mm3 (4.0-10.0) 01/17/20 06:25 RBC 3.76 M/mm3 (3.60-5.2) 01/17/20 06:25 Hgb 11.0 GM/dL (10.7-15.3) 01/17/20 06:25 Hct 32.6 % (32.4-45.2) 01/17/20 06:25 MCV 86.9 fl (80-96) 01/17/20 06:25 MCHC 33.6 g/dl (32.0-36.0) 01/17/20 06:25 RDW 14.4 % (11.6-15.6) 01/17/20 06:25 Plt Count 201 K/MM3 (134-434) 01/17/20 06:25 MPV 8.7 fl (7.5-11.1) 01/17/20 06:25 CMP Sodium 138 mmol/L (136-145) 01/17/20 06:25 Potassium 3.4 mmol/L (3.5-5.1) L 01/17/20 06:25 Chloride 107 mmol/L (98-107) 01/17/20 06:25 Carbon Dioxide 25 mmol/L (21-32) 01/17/20 06:25 Anion Gap 6 MMOL/L (8-16) L 01/17/20 06:25 BUN 5.6 mg/dL (7-18) L 01/17/20 06:25 Creatinine 0.4 mg/dL (0.55-1.3) L 01/17/20 06:25 Random Glucose 88 mg/dL (74-106) 01/17/20 06:25 Calcium 7.6 mg/dL (8.5-10.1) L 01/17/20 06:25 Total Bilirubin 0.6 mg/dL (0.2-1) 01/17/20 06:25 AST 13 U/L (15-37) L 01/17/20 06:25 ALT 17 U/L (13-61) 01/17/20 06:25 Alkaline Phosphatase 87 U/L (45-117) 01/17/20 06:25 Total Protein 6.6 g/dl (6.4-8.2) 01/17/20 06:25 Albumin 2.7 g/dl (3.4-5.0) L 01/17/20 06:25 Current Medications Generic Name Dose Route Start Last Admin Trade Name Freq PRN Reason Stop Dose Admin Acetaminophen 650 mg 01/17/20 11:35 01/17/20 13:51 Tylenol - PO 650 mg Q6H PRN Administration Fever Or Pain Sodium Chloride 1,000 mls @ 100 mls/hr 01/16/20 16:30 01/17/20 04:16 Normal Saline - IV 100 mls/hr ASDIR BILL Administration Ceftriaxone Sodium 1 gm/ 50 mls @ 100 mls/hr 01/18/20 10:00 Dextrose IVPB DAILY BILL Protocol Multivit/Folic Acid/Iron 1 tab 01/16/20 16:00 01/16/20 18:22 Vitamins (Sjr) - PO 1 tab DAILY BILL Administration Microbiology 01/16/20 12:13 Blood - Peripheral Venous Blood Culture - Preliminary NO GROWTH OBTAINED AFTER 24 HOURS, INCUBATION TO CONTINUE FOR 4 DAYS. 01/16/20 12:13 Blood - Peripheral Venous Blood Culture - Preliminary NO GROWTH OBTAINED AFTER 24 HOURS, INCUBATION TO CONTINUE FOR 4 DAYS. 01/16/20 11:40 Urine - Urine Clean Catch Urine Culture - Preliminary Lactose Fermenting Neg Bacilli ASSESSMENT AND PLAN: Patient is a 34yof presented with fever and back pain with some spotting. and was found to be . #Acute UTI: on IV Rocephin 1gm daily #Early pregnany with HCG of 40K, indicates early , daily hcg to monitor, repeat BHCg in am , to trend US vaginal: no gestational sac on trans-vaginal US, (sac not usually seen until HCG at least around 2000) will need daily HCG to document doubling/tripling, no signs of ectopic (no abdominal pain, BP stable) On po Prenatals vitamins STD testing with Hepatitis panel, HIV, syphilis, GC chlamydia (patient consented ) OBGYN consult: Jimenez appreciated DVT Px: SCDS
[2020-01-17] MEDS: PRENATAL VITAMINS W/ FOLIC ACID TABLET (FP) PO SCH (17:40)
--- NOTE | 2020-01-17 18:27 | CONS ---
INFECTIOUS DISEASE CONSULTATION DATE OF CONSULTATION: DATE OF DICTATION: 01/17/2020 HISTORY: This is a 34-year-old woman. She has never been hospitalized who comes to the ER with 1-week complaints of low back pain. She attributed it to lifting something heavy at her workplace. 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 The pain has been getting worse. It really was not improving. She took a test at home and found out she was , and she has had some spotting. She denies any vomiting. She denies any fevers or chills. She denies any abdominal pain. In the ER, she was found to have a fever of 100.4. This was on January 15. Later the same day, she had a fever of 102.1. She denies any chills or rigors. She had labs drawn. She was found to have pyuria in her urine. She had cultures sent and was started on ceftriaxone and fluids. This morning reports her back pain is entirely gone, and she is resting comfortably. She has no further complaints. She has never been in the hospital before. She has never had any surgery. She has no prior history of any recent urinary tract infections. She has never been on any recent antibiotics. ALLERGIES: She has no known drug allergies. MEDICATIONS: She takes no medications at home. SOCIAL HISTORY: She is originally from [place]. She has been here for 15 years. She is . Her is at the bedside providing translation. There is no history of cigarette, alcohol, or substance use. REVIEW OF SYSTEMS: As per HPI. PHYSICAL EXAMINATION: Vital Signs: Her maximum temperature is 102.1 yesterday, current temperature is 97.9, pulse is 69, blood pressure 124/64, respiratory rate is 20. She is saturating 100% on room air. HEENT: She is normocephalic. Her eyes are anicteric. Neck: Supple. Lungs: Clear to auscultation. Heart: Regular rate and rhythm. Abdomen: Soft, nontender. She currently has no suprapubic pain. Musculoskeletal: She has no back pain on exam. No CVAT. Extremities: Without edema. DIAGNOSTIC DATA: White count is 8.2, hemoglobin 11, platelets are 201. Chemistries are normal. Her ultrasound has 3+ blood, 2+ leukocytes with 151 white cells. HIV test is negative. RPR is negative. Her urine culture is growing lactose fermenting gram negatives. Blood cultures are negative. In summary, this is a 34-year-old woman admitted with a fever, back pain, UTI, and an early . Would continue ceftriaxone and IV fluids as ordered. Follow up cultures. Would plan obstetric follow up as an outpatient. Case was discussed with the resident. ORLANDO LANCASTER M.D. [id number] [facility] CAN[facility]ER CENTERMeka
--- NOTE | 2020-01-18 07:20 | PN ---
Progress Note (short form) - Note Progress Note: HD#3 Pt seen, labs reviewed with her, HCG slightly down from 40.9 to 40.0, indicating likely SAB. Nothing to do at present, can follow up in the office upon discharge. Bleeding precautions reviewed with patient Carlos Gaona MD
[2020-01-18 08:24] LABS: BLOOD UREA NITROGEN 3.5 mg/dL (7-18); CALCIUM 8.1 mg/dL (8.5-10.1); CREATININE 0.5 mg/dL (0.55-1.3); POTASSIUM 3.5 mmol/L (3.5-5.1)
--- NOTE | 2020-01-18 08:56 | PN ---
Teaching Attending Note Name of Resident: Stacey Martin ATTENDING PHYSICIAN STATEMENT I saw and evaluated the patient. I reviewed the resident's note and discussed the case with the resident. I agree with the resident's findings and plan as documented. SUBJECTIVE: Patient is feeling better with no acute distress, no fever or chills , no shortness of breath, translation is done by the medical student "Jeffrey". Patient stated that she is spotting. wants to keep the , and this was not planned. Explained the patient the levels of BHCG. Also patient stated that she will follow up with her own OBGYN ,has an appointment in am. Also explained to her that she needs to repeat the level of BHCG since for possible having SAB. Vital Signs Temperature 98.0 F 01/18/20 06:39 Pulse Rate 92 H 01/18/20 06:39 Respiratory Rate 20 01/18/20 06:39 Blood Pressure 104/62 01/18/20 06:39 O2 Sat by Pulse Oximetry (%) 100 01/17/20 21:00 GENERAL: The patient is awake, alert, and fully oriented, in no acute distress. HEAD: Normal with no signs of trauma. EYES: PERRL, extraocular movements intact, sclera anicteric, conjunctiva clear. ENT: Ears normal, oropharynx clear without exudates, moist mucous membranes. NECK: Trachea midline, full range of motion, supple. LUNGS: Breath sounds equal, clear to auscultation bilaterally, no wheezes, no crackles, no accessory muscle use. HEART: Regular rate and rhythm, S1, S2 without murmur, rub or gallop. ABDOMEN: Soft, nontender, nondistended, normoactive bowel sounds, no guarding, no rebound, no hepatosplenomegaly, no masses. EXTREMITIES: 2+ pulses, warm, well-perfused, no edema. No CVA tenderness NEUROLOGICAL: Cranial nerves II through XII grossly intact. Normal speech, gait not observed. PSYCH: Normal mood, normal affect. SKIN: Warm, dry, normal turgor, no rashes or lesions noted CBCD WBC 8.2 K/mm3 (4.0-10.0) 01/17/20 06:25 RBC 3.76 M/mm3 (3.60-5.2) 01/17/20 06:25 Hgb 11.0 GM/dL (10.7-15.3) 01/17/20 06:25 Hct 32.6 % (32.4-45.2) 01/17/20 06:25 MCV 86.9 fl (80-96) 01/17/20 06:25 MCHC 33.6 g/dl (32.0-36.0) 01/17/20 06:25 RDW 14.4 % (11.6-15.6) 01/17/20 06:25 Plt Count 201 K/MM3 (134-434) 01/17/20 06:25 MPV 8.7 fl (7.5-11.1) 01/17/20 06:25 CMP Sodium 137 mmol/L (136-145) 01/18/20 07:14 Potassium 3.5 mmol/L (3.5-5.1) 01/18/20 07:14 Chloride 105 mmol/L (98-107) 01/18/20 07:14 Carbon Dioxide 26 mmol/L (21-32) 01/18/20 07:14 Anion Gap 7 MMOL/L (8-16) L 01/18/20 07:14 BUN 3.5 mg/dL (7-18) L 01/18/20 07:14 Creatinine 0.5 mg/dL (0.55-1.3) L 01/18/20 07:14 Random Glucose 92 mg/dL (74-106) 01/18/20 07:14 Calcium 8.1 mg/dL (8.5-10.1) L 01/18/20 07:14 Total Bilirubin 0.6 mg/dL (0.2-1) 01/17/20 06:25 AST 13 U/L (15-37) L 01/17/20 06:25 ALT 17 U/L (13-61) 01/17/20 06:25 Alkaline Phosphatase 87 U/L (45-117) 01/17/20 06:25 Total Protein 6.6 g/dl (6.4-8.2) 01/17/20 06:25 Albumin 2.7 g/dl (3.4-5.0) L 01/17/20 06:25 Current Medications Generic Name Dose Route Start Last Admin Trade Name Freq PRN Reason Stop Dose Admin Acetaminophen 650 mg 01/17/20 11:35 01/17/20 13:51 Tylenol - PO 650 mg Q6H PRN Administration Fever Or Pain Sodium Chloride 1,000 mls @ 100 mls/hr 01/16/20 16:30 01/17/20 17:40 Normal Saline - IV Not Given ASDIR [facility] Ceftriaxone Sodium 1 gm/ 50 mls @ 100 mls/hr 01/18/20 10:00 Dextrose IVPB DAILY [facility] Protocol Multivit/Folic Acid/Iron 1 tab 01/16/20 16:00 01/17/20 17:40 Vitamins (Sjr) - PO 1 tab DAILY BILL Administration Microbiology 01/16/20 12:13 Blood - Peripheral Venous Blood Culture - Preliminary NO GROWTH OBTAINED AFTER 24 HOURS, INCUBATION TO CONTINUE FOR 4 DAYS. 01/16/20 12:13 Blood - Peripheral Venous Blood Culture - Preliminary NO GROWTH OBTAINED AFTER 24 HOURS, INCUBATION TO CONTINUE FOR 4 DAYS. 01/16/20 11:40 Urine - Urine Clean Catch Urine Culture - Preliminary Lactose Fermenting Neg Bacilli ASSESSMENT AND PLAN: Patient is a 34yof presented with fever and back pain with some spotting. and was found to be . #Acute UTI:due to E.coli , on IV Rocephin 1gm daily, is the 3rd dose, will continue with amoxicillin 500mg tid x 7 more days for the total of 10 days. bacid with it #Early with HCG of 40K-->47 today, indicates early , daily hcg to monitor, repeat BHCg as an outpatient . US vaginal: no gestational sac on trans-vaginal US, (sac not usually seen until HCG at least around 2000) no signs of ectopic (no abdominal pain, BP stable). 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
[2020-01-18] MEDS ORDERED: cefTRIAXone SODIUM 1 GM VIAL ONE (09:49)
[2020-01-18] MEDS ORDERED: DEXTROSE 5%-WATER - 50 ML IVPB ONE (09:49)
[2020-01-18] MEDS ORDERED: PT OWN MED DRAWER 7, Y5N ONE (09:49)
[2020-01-18] MEDS: PRENATAL VITAMINS W/ FOLIC ACID TABLET (FP) PO SCH (09:51)
[2020-01-18] MEDS ORDERED: CEFTRIAXONE 2 GM in DEXTROSE 5%-WATER 100 ML IVPB SCH (10:00)
[2020-01-18] MEDS ORDERED: CEFTRIAXONE 1 GM in DEXTROSE 5%-WATER - 50 ML IVPB SCH (10:00)
[2020-01-18] MEDS ORDERED: SODIUM CHLORIDE 1,000 ML IV SCH (15:08)
[2020-01-18 15:15] VITALS: BP 104/88; PULSE 83; TEMP 97.7
--- NOTE | 2020-01-18 16:06 | DS ---
Physical Exam: SUBJECTIVE: Patient seen and examined at bed. no acute complaints. OBJECTIVE: Vital Signs Period Temp Pulse Resp BP Sys/Ferreira Pulse Ox Last 24 Hr 97.7 F-98.9 F 83-98 20-20 100-116/60-88 100 PHYSICAL EXAM GENERAL: The patient is awake, alert, and fully oriented, in no acute distress. HEAD: Normal with no signs of trauma. LUNGS: Breath sounds equal, clear to auscultation bilaterally, no wheezes, no crackles, no accessory muscle use. HEART: Regular rate and rhythm, S1, S2 without murmur, rub or gallop. ABDOMEN: Soft, nontender, nondistended, normoactive bowel sounds, no guarding EXTREMITIES: 2+ pulses, warm, well-perfused, no edema. NEUROLOGICAL: Cranial nerves II through XII grossly intact. Normal speech PSYCH: Normal mood, normal affect. SKIN: Warm, dry, normal turgor, no rashes or lesions noted. LABS Laboratory Results - last 24 hr 01/18/20 07:14 Sodium 137 Potassium 3.5 Chloride 105 Carbon Dioxide 26 Anion Gap 7 L BUN 3.5 L Creatinine 0.5 L Est GFR (CKD-EPI)AfAm 145.33 Est GFR (CKD-EPI)NonAf 125.39 Random Glucose 92 Calcium 8.1 L Beta HCG, Quant 47.5 HOSPITAL COURSE: Date of Admission:01/16/20 34 yo F no significant PMH, no prior pregnancies , LMP 12/24/2019 presents to ED for lower back. the pain began last week and acutely worsened yesterday.Pt is admitted for pyelonephritis. UCx grew Ecoli, casas sensitive. pt was treated with 3 days IV rocephin and IV Fluids. B HCG was monitored and it increased from 40-- > 47.5, pt should f.u outpt with CAGE MANAGER as may be a threatened . pt should have serial B HCG. HIV testing negative. Pt discharged with vitamins and 7 days of amoxicillin TID. pt should f/u with PMD in one week Date of Discharge: 01/18/20 Minutes to complete discharge: 36 Discharge Summary Problems reviewed: Yes Reason For Visit: PYELONEPHRITIS Current Active Problems Back pain affecting (Acute) (Acute) Pyelonephritis affecting (Acute) Condition: Stable - Instructions Diet, Activity, Other Instructions: You came into the hospital for back pain. You had testing that shows that you have a urinary tract infection leading to an infection in your kidneys. You were treated with IV antibiotics. We did a test which came back positive. We imaged your abdomen and found your had ovarian simple cysts. You were evaluated by CAGE [facility]NAGER team and they recommend that you follow up with your CAGE MANAGER within 1 week after discharge. Please take vitamins daily Please take Amoxicillin every 8 hours for 7 days. Please follow up with your primary care physician. Attached is a referral for the [facility] medical clinic at the [facility]. You should follow up in 1 week. Please follow up with your CAGE MANAGER regarding your . Attached is a referral for Dr. Gaona if you do not have one. You will need to repeat you B HCG in 1 week. If you have abdominal pain, nausea, vomiting, fever, chills, burning on urination or ant new, worsening, or concerning symptoms please return to the ED or call 911 Referrals: [facility] [place] [facility] [place] [Provider Group] Ora Gaona MD [Staff Physician] - Mike Deluca MD [Staff Physician] - Disposition: HOME - Home Medications Comprehensive Discharge Medication List: Ambulatory Orders Amoxicillin - [Amoxicillin 500mg Capsule -] 500 mg PO TID 7 Days #21 capsule 02/03 Vitamins (Sjr) - 1 tab PO DAILY #90 tablet 01/18/20 This patient is new to me today: No Emergency Visit: No Critical Care patient: No - Discharge Referral Referred to [facility] No ATTENDING PHYSICIAN STATEMENT I saw and evaluated the patient. I reviewed the resident's note and discussed the case with the resident. I agree with the resident's findings and plan as documented. SUBJECTIVE: OBJECTIVE: ASSESSMENT AND PLAN:
== END 2020-01-18 18:30 | disposition home or self-care (01) | DRG 566 ==
LOC: JER 10:59 → JERBED 12:40 → J6S 16:53
PROVIDERS: ATTEND Internal Medicine
DX: O23.01 Infections of kidney in pregnancy, first trimester (principal); N83.292 Other ovarian cyst, left side; N83.291 Other ovarian cyst, right side; B96.20 Unspecified Escherichia coli [E. coli] as the cause of diseases classified elsewhere
CPT/HCPCS: 36415; 76775-TC; 76817-TC; 80048; 80053; 81003; 83605; 83735; 84100; 84702; 85025; 86593; 86850; 86900; 86901; 87040; 87086; 87186; 87389; 93005; 93010; 99285-25; J0131; J7030

== ENCOUNTER 2024-01-31 13:57 | Emergency (ER) | payer OTHER ==
[2024-01-31 14:04] VITALS: BP 118/72; PULSE 98; RESP 20; TEMP 99.3; BMI 32.8
[2024-01-31 14:55] LABS: BASO % 1.2 % (0-2.0); EOS % 1.7 % (0-4.5); HEMATOCRIT 34.9 % (32.4-45.2); HEMOGLOBIN 11.6 GM/dL (10.7-15.3); LYMPH % 21.1 % (8-40); MCH 28.6 pg (25.7-33.7); MCHC 33.4 g/dl (32.0-36.0); MEAN CELL VOLUME 85.8 fl (80-96); MEAN PLT VOLUME 8.1 fl (7.5-11.1); MONO % 4.9 % (3.8-10.2); NEUT % 71.1 % (42.8-82.8); PLATELET COUNT 339 10^3/uL (134-434); RBC 4.06 M/mm3 (3.60-5.2); RDW 14.5 % (11.6-15.6); WHITE BLOOD COUNT 9.4 K/mm3 (4.0-10.0)
[2024-01-31 14:56] LABS: HCG,QUALITATIVE URINE Positive
[2024-01-31 15:02] LABS: INR 1.1 (0.83-1.09); PROTHROMBIN TIME (PATIENT) 12.8 SEC (9.7-13.0)
[2024-01-31 15:03] LABS: EPI CELLS 20 /uL (0-25.1); HYALINE CASTS 0 /uL (0-3.1); PH,URINE 6.5 (5.0-8.0); URINE APPEARANCE CLEAR; URINE BACTERIA 683 /uL (0-1359); URINE BILIRUBIN NEGATIVE (NEGATIVE); URINE COLOR YELLOW; URINE GLUCOSE (UA) NEGATIVE (NEGATIVE); URINE KETONE NEGATIVE (NEGATIVE); URINE LEUK ESTERASE NEGATIVE (NEGATIVE); URINE NITRITE NEGATIVE (NEGATIVE); URINE PROTEIN TRACE (NEGATIVE); URINE UROBILINOGEN 0.2 mg/dL (0.2-1.0); URINE WBC 35 /uL (0-25.8)
[2024-01-31 15:05] LABS: ACTIVATED PTT 33.6 SECONDS (25.2-36.5)
[2024-01-31 15:20] LABS: POTASSIUM 3.3 mmol/L (3.5-5.1)
[2024-01-31 15:22] LABS: CALCIUM 8.7 mg/dL (8.5-10.1)
[2024-01-31 15:23] LABS: ALBUMIN 3.5 g/dl (3.4-5.0); BLOOD UREA NITROGEN 8.5 mg/dL (7-18)
[2024-01-31 15:26] LABS: CREATININE 0.5 mg/dL (0.55-1.3)
[2024-01-31 15:28] LABS: BILIRUBIN,TOTAL 0.3 mg/dL (0.2-1); TOT PROT 7.4 g/dl (6.4-8.2)
[2024-01-31 15:35] LABS: URINE RBC 237 /uL (0-23.9)
[2024-01-31 15:36] LABS: YEAST NONE SEEN (NEGATIVE)
[2024-01-31] MEDS ORDERED: POTASSIUM CHLORIDE ORAL LIQUID 20 MEQ/15 ML ONE (15:46)
[2024-01-31] MEDS: POTASSIUM CHLORIDE ORAL LIQUID 20 MEQ/15 ML PO ONE (16:08)
== END 2024-01-31 17:09 | disposition home or self-care (01) ==
LOC: JER 13:57
DX: O20.9 Hemorrhage in early pregnancy, unspecified (principal); Z3A.01 Less than 8 weeks gestation of pregnancy
CPT/HCPCS: 36415; 76817-TC; 80053; 81003; 84702; 84703; 85025; 85610; 85730; 86850; 86900; 86901; 87086; 99284-25

== ENCOUNTER 2024-02-02 12:24 | Emergency (ER) | payer OTHER ==
[2024-02-02 12:36] VITALS: RESP 18; BMI 26.4
[2024-02-02 13:36] LABS: BASO % 0.4 % (0-2.0); EOS % 1.1 % (0-4.5); HEMATOCRIT 34.7 % (32.4-45.2); LYMPH % 19.2 % (8-40); MCH 29.6 pg (25.7-33.7); MCHC 34.6 g/dl (32.0-36.0); MEAN CELL VOLUME 85.7 fl (80-96); MEAN PLT VOLUME 7.9 fl (7.5-11.1); MONO % 3.9 % (3.8-10.2); NEUT % 75.4 % (42.8-82.8); PLATELET COUNT 332 10^3/uL (134-434); RBC 4.04 M/mm3 (3.60-5.2); RDW 14.6 % (11.6-15.6); WHITE BLOOD COUNT 9.4 K/mm3 (4.0-10.0)
[2024-02-02 14:03] LABS: POTASSIUM 3.7 mmol/L (3.5-5.1)
[2024-02-02 14:06] LABS: CALCIUM 8.5 mg/dL (8.5-10.1)
[2024-02-02 14:07] LABS: ALBUMIN 3.5 g/dl (3.4-5.0); BLOOD UREA NITROGEN 5.9 mg/dL (7-18)
[2024-02-02 14:10] LABS: CREATININE 0.5 mg/dL (0.55-1.3)
[2024-02-02 14:11] LABS: BILIRUBIN,TOTAL 0.4 mg/dL (0.2-1)
[2024-02-02 14:12] LABS: TOT PROT 7.2 g/dl (6.4-8.2)
[2024-02-02 15:20] LABS: EPI CELLS 15 /uL (0-25.1); HYALINE CASTS 0 /uL (0-3.1); URINE APPEARANCE CLEAR; URINE BACTERIA 318 /uL (0-1359); URINE BILIRUBIN NEGATIVE (NEGATIVE); URINE COLOR YELLOW; URINE GLUCOSE (UA) NEGATIVE (NEGATIVE); URINE KETONE NEGATIVE (NEGATIVE); URINE LEUK ESTERASE TRACE (NEGATIVE); URINE NITRITE NEGATIVE (NEGATIVE); URINE PROTEIN TRACE (NEGATIVE); URINE RBC 270 /uL (0-23.9); URINE UROBILINOGEN 0.2 mg/dL (0.2-1.0); URINE WBC 53 /uL (0-25.8); YEAST NEGATIVE (NEGATIVE)
[2024-02-02 17:13] VITALS: BP 118/70; PULSE 77; TEMP 97.9
== END 2024-02-02 16:25 | disposition home or self-care (01) ==
LOC: JER 12:24
DX: O26.891 Other specified pregnancy related conditions, first trimester (principal); R10.31 Right lower quadrant pain; O26.851 Spotting complicating pregnancy, first trimester; Z3A.01 Less than 8 weeks gestation of pregnancy
CPT/HCPCS: 36415; 80053; 81003; 84702; 85025; 86850; 86900; 86901; 87086; 99283-25

== ENCOUNTER 2024-02-10 16:25 | Emergency (ER) | payer OTHER ==
[2024-02-10 16:31] VITALS: BP 110/75; PULSE 83; RESP 20; TEMP 98.4; BMI 35.2
[2024-02-10 17:28] LABS: BASO % 1.1 % (0-2.0); EOS % 2.1 % (0-4.5); HEMATOCRIT 35.7 % (32.4-45.2); LYMPH % 25.5 % (8-40); MCH 28.8 pg (25.7-33.7); MCHC 33.7 g/dl (32.0-36.0); MEAN CELL VOLUME 85.4 fl (80-96); MEAN PLT VOLUME 7.9 fl (7.5-11.1); MONO % 7.1 % (3.8-10.2); NEUT % 64.2 % (42.8-82.8); PLATELET COUNT 321 10^3/uL (134-434); RBC 4.18 M/mm3 (3.60-5.2); RDW 14.5 % (11.6-15.6); WHITE BLOOD COUNT 10.3 K/mm3 (4.0-10.0)
[2024-02-10 20:01] LABS: POTASSIUM 3.7 mmol/L (3.5-5.1)
[2024-02-10 20:03] LABS: CALCIUM 8.7 mg/dL (8.5-10.1)
[2024-02-10 20:04] LABS: ALBUMIN 3.6 g/dl (3.4-5.0)
[2024-02-10 20:06] LABS: BLOOD UREA NITROGEN 8.2 mg/dL (7-18)
[2024-02-10 20:07] LABS: CREATININE 0.5 mg/dL (0.55-1.3)
[2024-02-10 20:09] LABS: BILIRUBIN,TOTAL 0.3 mg/dL (0.2-1); TOT PROT 7.5 g/dl (6.4-8.2)
[2024-02-10] MEDS: METHOTREXATE SODIUM/PF 25 MG/ML VIAL IM ONE (21:48)
== END 2024-02-10 21:55 | disposition home or self-care (01) ==
LOC: JER 16:25
PROC: 3E023GC Introduction of Other Therapeutic Substance into Muscle, Percutaneous Approach (ICD-10-PCS; principal; 2024-02-10)
DX: O00.201 Right ovarian pregnancy without intrauterine pregnancy (principal); O20.9 Hemorrhage in early pregnancy, unspecified; Z3A.01 Less than 8 weeks gestation of pregnancy
CPT/HCPCS: 36415; 76817-TC; 80053; 84702; 84703; 85025; 86850; 86900; 86901; 96372; 99284-25; J9260

== ENCOUNTER 2024-02-14 10:44 | Emergency (ER) | payer OTHER ==
[2024-02-14 10:57] VITALS: BP 114/71; PULSE 77; RESP 18; TEMP 98; BMI 36.3
[2024-02-14 11:37] LABS: BASO % 0.7 % (0-2.0); EOS % 3.5 % (0-4.5); HEMATOCRIT 33.5 % (32.4-45.2); HEMOGLOBIN 11.3 GM/dL (10.7-15.3); MCH 29.1 pg (25.7-33.7); MCHC 33.9 g/dl (32.0-36.0); MEAN CELL VOLUME 85.9 fl (80-96); MONO % 4.3 % (3.8-10.2); NEUT % 56.5 % (42.8-82.8); PLATELET COUNT 298 10^3/uL (134-434); WHITE BLOOD COUNT 5.8 K/mm3 (4.0-10.0)
[2024-02-14 11:55] LABS: POTASSIUM 3.5 mmol/L (3.5-5.1)
[2024-02-14 11:57] LABS: CALCIUM 8.5 mg/dL (8.5-10.1)
[2024-02-14 11:58] LABS: BLOOD UREA NITROGEN 8.7 mg/dL (7-18)
[2024-02-14 12:01] LABS: CREATININE 0.5 mg/dL (0.55-1.3)
== END 2024-02-14 12:13 | disposition home or self-care (01) ==
LOC: JERFT 10:44
DX: O00.90 Unspecified ectopic pregnancy without intrauterine pregnancy (principal)
CPT/HCPCS: 36415; 80048; 84702; 85025; 99283-25

== ENCOUNTER 2024-02-18 10:19 | Emergency (ER) | payer OTHER ==
[2024-02-18 10:31] VITALS: BP 127/69; PULSE 82; RESP 17; TEMP 98.6; BMI 36.3
== END 2024-02-18 12:40 | disposition home or self-care (01) ==
LOC: JERFT 10:19 → JER 10:19
DX: O02.81 Inappropriate change in quantitative human chorionic gonadotropin (hCG) in early pregnancy (principal)
CPT/HCPCS: 36415; 84702; 99283-25